=== PATIENT | male | born 1940 | race Caucasian/White ===

== ENCOUNTER 2024-08-21 07:29 | Day surgery (SDC) | payer MEDICARE, SELFPAY ==
[2024-08-21] VITALS (25 sets, daily range): BP systolic 111–174; BP diastolic 49–114; BMI 31.6
[2024-08-21 08:49] LABS: Hematocrit 41.4 % (39.0-52.0); Hemoglobin 13.8 g/dL (13.0-18.0); Mean Corp Hgb Conc. 33.3 g/dL (33.0-37.0); Mean Corpuscular Volume 96.1 fL (80.0-94.0); Platelet Count 144 10^3/uL (130-400); Red Blood Cell Count 4.31 10^6/uL (4.70-6.10); Red Cell Dist. Width 13.6 % (11.5-14.5); White Blood Cell Count 9.7 10^3/uL (4.8-10.8)
[2024-08-21 09:03] LABS: APTT 25.1 Sec (23.4-35.0); INR 1.05
[2024-08-21 09:04] LABS: Blood Urea Nitrogen 23 mg/dl (9-20); Calcium 8.7 mg/dl (8.4-10.2); Carbon Dioxide 25 mmol/L (22-30); Chloride 104 mmol/L (98-107); Estimated Creatinine Clearance 92 ml/min; Glucose 114 mg/dl (70-99); Potassium 4.6 mmol/L (3.5-5.1); Sodium 139 mmol/L (135-145); eGFR > 60.00
--- NOTE | 2024-08-21 10:14 | W.SUR.PREOP ---
Pre-Operative Surgical Note
-
I have examined this patient prior to the performance of the scheduled procedure.
The patient's condition is unchanged from the time of the current History and
Physical and the patient is able to undergo the scheduled procedure.
--- NOTE | 2024-08-21 12:00 | W.SUR.POST ---
Surgical Immediate Post Op
Note
Pre Op Diagnosis: Right lower extremity debilitating claudication
Post Op Diagnosis: Right lower extremity debilitating claudication
Procedure Performed: Aortogram, right lower extremity angiogram, right iliac stent
Primary Surgeon: Ernie Quintero III, MD
Secondary Surgeons: N/A
Anesthesia: MAC
Estimated Blood Loss: 2 ml
Fluids: See anesthesia flowsheet
Drains/Shunts: N/A
Specimens/Cultures: N/A
Doppler/Duplex/Angio (Y/N):Y
Complications: None
Operative Findings: Successful endovascular invention
--- NOTE | 2024-08-21 12:57 | SUR.PHASEI ---
1245: Upon preparing for patient to be transported back to employment attorney, pt. right groin stated to bleed. RN removed dressing and held pressure with clean 4x4. Cath RAJESH Pedro made aware and Cath team arrived to PACU. Cath PA took over holding pressure
and hemostasis was reachieved at 1245. Pressure dressing was changed. Pt. vitals remained WNL throughout event. Pt. was safely transported back to CATH recovery room from PACU after given the okay from RAJESH Pedro.
--- NOTE | 2024-08-21 19:31 | PTCARENOTE ---
pt arrived 182 from labor operator, flat in bed/bedrest, precautions remain. NV cks, site assessed with nurses no active bleeding, dried blood on sheet, pressure dressing to left groin intact. very pleasant.
[2024-08-21] MEDS: TIMOPTIC 0.5% OPHTHALMIC SOLUTION 1 DROP BOTH EYES (19:42)
[2024-08-21] MEDS: XALATAN OPHTHALMIC SOLUTION 1 DROP BOTH EYES (19:42)
[2024-08-21] MEDS: COREG 6.25 MG PO (19:42)
[2024-08-21] MEDS: NSS 1000 IV (21:16)
[2024-08-21] MEDS: AZOPT 1% OPHTHALMIC SUSPENSION 1 DROP BOTH EYES (21:22)
[2024-08-21] MEDS: ALPHAGAN 0.2% EYE DROPS 1 DROP BOTH EYES (21:22)
[2024-08-22 03:05] VITALS: BP 135/62
--- NOTE | 2024-08-22 07:03 | W.PN.VS ---
Addendum entered and electronically signed by Ari Strickland MD 08/22/24 15:49:
Seen and evaluated prior to his discharge. As noted below, agree with findings. Patient was without complaints. Abdomen soft. Groins flat bilaterally. Feet warm. EKG changes reviewed. We asked cardiology Dr. Schwarz to see the patient.
Appreciate Dr. Fierro evaluation. He reviewed and felt that the patient was okay to be discharged and follow-up with his reconcilement clerk as outpatient. See Dr. Fierro note. Patient was able to void successfully without difficulty. No significant
postvoid residual. Therefore discharge as planned.
Addendum entered and electronically signed by ERLINDA Ann 08/22/24 08:50:
Correction to below plan if he requires a third catheterization for continued urinary retention we will place a Quintero catheter with leg bag
Original Note:
Today's Communication / Plan
-
Reviewed subjective/objective data and physical exam with on-call attending Dr. Ari Strickland via phone, agrees with below plan.
Assessment/Plan
-
Assessment: 84-year-old male POD #1 aortogram with right iliac artery stent, required prolonged stay for urinary retention
Plan:
Encourage ambulation and voiding in comfortable position, if patient requires a fourth catheterization for continued urinary retention we will at that point place Quintero catheter with leg bag and discharge patient to home with outpatient follow-up
with urology for retention
Follow-up with vascular surgery placed in discharge instructions
Continue prior dosing of aspirin for antiplatelet medication
Subjective Data
-
Date of Service: August 22, 2024
Patient seen and examined at bedside, offers no complaints. Does endorse 1 spontaneous urination overnight, but did require straight cath afterwards for high post residual void. Denies pain at bilateral groin puncture sites. Tolerating p.o. diet.
Objective Data
-
Vital Signs
Temp Pulse Resp BP Pulse Ox
98.8 F 61 16 135/62 97
08/22/24 03:05 08/22/24 03:05 08/22/24 03:05 08/22/24 03:05 08/22/24 03:05
Intake and Output
08/21/24 08/22/24 08/23/24
06:59 06:59 06:59
Intake Total 960 / 960
Output Total 2800 / 2800
Balance -1840 / -1840
Intake:
IV fluids (Total) 960 / 960
Output:
Urine, Quintero 1550 / 1550
Urine, Voided 650 / 650
Straight cath output 600 / 600
Calcium 8.7 mg/dl (8.4-10.2) 08/21/24 08:34
Physical Exam
-
No apparent distress, resting bed comfortably
No tachycardia
No dyspnea on room air
ABD rotund, nondistended, nontender
Bilateral groin puncture sites clean dry and intact, no evidence of hematoma
Right DP/PT with Doppler signal, bilateral feet warm
[2024-08-22 07:15] VITALS: BP 147/63
[2024-08-22 07:31] LABS: Hematocrit 35.2 % (39.0-52.0); Hemoglobin 12.2 g/dL (13.0-18.0); Mean Corp Hgb Conc. 34.7 g/dL (33.0-37.0); Mean Corpuscular Hgb 32.4 pg (27.0-31.0); Mean Corpuscular Volume 93.4 fL (80.0-94.0); Mean Platelet Volume 10.4 fL (7.4-10.4); Platelet Count 124 10^3/uL (130-400); Red Blood Cell Count 3.77 10^6/uL (4.70-6.10); Red Cell Dist. Width 13.8 % (11.5-14.5); White Blood Cell Count 14.5 10^3/uL (4.8-10.8)
[2024-08-22 07:37] LABS: INR 1.05
[2024-08-22 07:38] LABS: APTT 26.7 Sec (23.4-35.0)
[2024-08-22] MEDS: AZOPT 1% OPHTHALMIC SUSPENSION 1 DROP BOTH EYES (07:46)
[2024-08-22] MEDS: ASPIRIN 325 MG PO (07:46)
[2024-08-22] MEDS: ALPHAGAN 0.2% EYE DROPS 1 DROP BOTH EYES (07:46)
[2024-08-22] MEDS: COREG 6.25 MG PO (07:47)
[2024-08-22] MEDS: COZAAR 100 MG PO (07:51)
[2024-08-22] MEDS: NORVASC 10 MG PO (07:52)
[2024-08-22] MEDS: ZYRTEC 10 MG PO (07:52)
[2024-08-22] MEDS: LIPITOR 20 MG PO (07:52)
[2024-08-22] MEDS: PEPCID 20 MG PO (07:52)
[2024-08-22] MEDS: TIMOPTIC 0.5% OPHTHALMIC SOLUTION 1 DROP BOTH EYES (07:53)
[2024-08-22 08:02] LABS: Blood Urea Nitrogen 19 mg/dl (9-20); Calcium 8.7 mg/dl (8.4-10.2); Carbon Dioxide 27 mmol/L (22-30); Chloride 101 mmol/L (98-107); Estimated Creatinine Clearance 82 ml/min; Glucose 125 mg/dl (70-99); Sodium 137 mmol/L (135-145); eGFR > 60.00
--- NOTE | 2024-08-22 09:49 | PTCARENOTE ---
Notified Dr. Strickland and Mayela Nichols. he has bradycardia. A first� AV block. And second degree into 30s. Did EKG. Blood pressure 125/63 heart rate 54 map 84. Alert and oriented palpable pedals. PCP EKG showed prolonged DE
[2024-08-22 09:55] VITALS: BP 125/63
[2024-08-22] MEDS: FLOMAX 0.4 MG PO (10:18)
--- NOTE | 2024-08-22 10:53 | PTCARENOTE ---
Spoke with DENTAL LAB TECHNICIAN on PC...consulting Miah vera, verbal order placed.
[2024-08-22 11:30] VITALS: BP 118/57
--- NOTE | 2024-08-22 11:44 | CON.CAR ---
Consultation
Consultation Request
Date/Time Consultation Requested: 08/22/2024 at 11 AM
Date/Time Consultation Performed: 08/22/2024 at noon
Requesting Provider: Mayela Nichols/Ernie Quintero
Performing Provider: Miah Fierro MD
Reason for Consultation: Bradycardia
Medical History
-
Chief Complaint: Bradycardia
History of Present Illness:
Patient underwent right iliac stent on August 21, had urinary retention and so was kept overnight, this morning had transient second-degree AV block, and consultation requested. His leg feels better this morning. He has never had lightheadedness
or syncope. He has no awareness of palpitations etc. There is a history of PVCs, but his necktie turner Dr. Tavares at [facility] has never documented arrhythmia. He has a mildly dilated aortic root and normal LV function with mild ME by echo. His son
is a nurse automotive service porter at [employer].
Past Medical History
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
Past Surgical History: Other (Herniorrhaphy, laser trabeculectomy,)
Social History
Tobacco: Former Smoker (Quit 4 years)
Alcohol: Former (At least moderate until stroke in 2012, now none)
Drug: None
Personal:
Living: With Family ()
Employment: Retired (Worked in [employer]/premature a.m[employer]
Family History
Family History: Reviewed & Not Pertinent
Allergies / Home Medications
Allergy/AdvReac Type Severity Reaction Status Date / Time
No Known Allergies Allergy Verified 08/19/24 16:10
�Medication �Instructions �Recorded �Confirmed �Type
amlodipine 10 mg tablet 10 mg PO DAILY 07/29/24 08/21/24 History
aspirin 325 mg tablet 325 mg PO DAILY 07/29/24 08/21/24 History
atorvastatin 20 mg tablet 20 mg PO DAILY 07/29/24 08/21/24 History
carvedilol 12.5 mg tablet (Coreg) 6.25 mg PO BID 07/29/24 08/21/24 History
cetirizine 10 mg tablet 10 mg PO DAILY 07/29/24 08/21/24 History
coQ10 (ubiquinol) 100 mg capsule 200 mg PO DAILY 07/29/24 08/21/24 History
famotidine 20 mg tablet 20 mg PO DAILY 07/29/24 08/21/24 History
latanoprost 0.005 % eye drops 1 drp ophthalmic (eye) QPM 07/29/24 08/21/24 History
losartan 100 mg tablet 100 mg PO DAILY 07/29/24 08/21/24 History
timolol 0.5 % eye drops 1 drp ophthalmic (eye) BID 07/29/24 08/21/24 History
brimonidine 0.2 % eye drops 1 drp ophthalmic (eye) TID 08/21/24 08/21/24 History
brinzolamide 1 % eye 1 drp ophthalmic (eye) TID 08/21/24 08/21/24 History
drops,suspension
tamsulosin 0.4 mg capsule 0.4 mg PO DAILY #14 caps 08/22/24 Rx
Review of Systems
-
All other systems: Negative unless noted
Physical Exam
Vital Signs
Temp Pulse Resp BP Pulse Ox
36.5 C 82 16 125/63 97
08/22/24 07:15 08/22/24 09:55 08/22/24 07:15 08/22/24 09:55 08/22/24 09:55
Lab Results
08/22/24 06:41
08/22/24 06:41
Physical Exam
General: Well Developed and No Apparent Distress
HEENT: Normocephalic (Markedly positive lens, presumed prior cataract surgery)
Respiratory: Clear
Cardiac: Regular Rhythm and Other (No murmur carotids okay, JVD normal)
GI: Soft and Non Distended
Musculoskeletal: No Edema
Skin: Warm and Dry
Neuro: AO x 3
Psych: Calm
Impression / Plan
-
Impression:
Asymptomatic Mobitz type I second-degree AV block with baseline first-degree AV block and blocked PACs
PAD with occluded right common iliac, status post I O PSYCHOLOGIST stent August 21, 2024
Remote stroke with blindness left eye
Bilateral carotid artery stents
Hypertension
Hyperlipidemia
History of PVCs
Coronary artery calcification
Last reported echo 2022: EF 60-65% aortic root 4 cm, ascending aorta 4 cm mild AI,
CT chest 2021 coronary artery calcification
Carotid ultrasound 2022, 50-69% on left, less than 50% on right
Plan:
He presents with asymptomatic early sick sinus syndrome with baseline first-degree AV block, relative bradycardia, blocked PACs and rare Mobitz type I second-degree AV block.
Given that he is asymptomatic, nothing is required acutely. His recent bladder outlet obstruction may have increased vagal tone and made his symptoms more evidence.
At this point nothing further is required. I discussed with his son who is a nurse automotive service porter. His son took a photo of his telemetry strip showing Mobitz type I. He will follow-up to his [facility] necktie turner and obtain appropriate studies
thereafter.
Okay for discharge from cardiac standpoint.
Please call if questions.
Data Reviewed
-
EKG: Tracing Personally Visualized and interpreted
Labs: Labs Reviewed by me
Old Records: Reviewed
Total Time Spent with Patient (in minutes): 55
[2024-08-22 14:30] VITALS: BP 130/58
--- NOTE | 2024-08-22 15:06 | CM ---
IA completed with pt.
Pt is an 84yr old who was admitted outpt for arteriogram.
Pt lives with his son and family in a 1 level living with 7steps to enter. Pt does not drive.
Pt has no DME/VN/SNf hx
PCP; Gilbert Walls
Pharm; [facility] [address]
PLAN; dc to home with no needs.
--- NOTE | 2024-08-24 08:57 | OR.RPT ---
Operative Report
Operative Report
Date of Operation: 08/21/2024
Pre Op Diagnosis:
1. Debilitating right buttock claudication
2. Occluded right common iliac artery
Post Op Diagnosis:
1. Debilitating right buttock claudication
2. Occluded right common iliac artery
Procedure:
1.) Intravascular lithotripsy to right common iliac artery (12 mm x 30 mm L6 shockwave balloon)
2.) Balloon angioplasty and stenting of right common iliac artery (overlapping [place] VBX stents 10 mm x 59 mm, 10 mm x 39 mm)
3.) Diagnostic aortobiiliac arteriogram
4.) Ultrasound-guided percutaneous access to the BILATERAL common femoral arteries
5.) Introduce wire/catheter to aorta from bilateral femoral artery access
Surgeon: Ernie Quintero III, MD
Scanner Supervisor: Milton Nugent MD PGY1
Anesthesia: Sedation with local
Fluoroscopy:
18.9 min
1450 mGy
285.01 Gy.cm2
Complications: None
Estimated Blood Loss: 10 cc
History and Indications for Procedure: 83-year-old male with debilitating right buttock claudication. Cross-sectional imaging preoperatively demonstrated an occluded right common iliac artery.
Procedure in Detail: Kaya Blue was correctly identified and placed supine on the operating table. After adequate induction of anesthesia the bilateral groins were prepped and draped in the usual sterile fashion. A timeout was performed
with the nursing and anesthesia staff confirming the patient's identity as well as the nature and laterality of the procedure.
The right common femoral artery was identified under ultrasound guidance. The artery was patent. The superior and inferior aspects of the femoral head were identified with radiographic guidance and marked at the skin level. The proposed puncture
site was infiltrated with local anesthesia. Under ultrasound guidance we accessed the right common femoral artery with a micropuncture needle and upsized to a 5 Fr sheath over a Bentson wire. Similarly, under ultrasound guidance the left common
femoral artery was accessed with a micropuncture needle. A 5 Wallisian sheath was then placed over a Bentson wire. The wire and a Shepherds hook flush catheter were advanced into the distal abdominal aorta from the left common femoral access and a
diagnostic aorto-biiliac arteriogram was performed:
AORTO-ILIAC ARTERIOGRAM:
Aorta: Patent with no significant stenosis identified
Right common iliac artery: Occluded. Distal reconstitution identified at the iliac bifurcation
Right external iliac artery: Patent
Left common iliac artery: Patent. Calcified stenosis identified at the mid segment
Left external iliac artery: Patent
ENDOVASCULAR INTERVENTION: Systemic heparin was administered. Under roadmap guidance using a Quickcross catheter and stiff Glidewire I was able to cross the right common iliac artery occlusion retrograde. The wire and catheter were advanced into
the distal abdominal aorta. An arteriogram was performed, confirming position in the aorta. I then placed a floppy tip Amplatz wire and upsized to an 8 Wallisian sheath on the right. I then exchanged out for a 0.018 wire on the right. Due to the
heavily calcified nature of the common iliac artery disease and in an effort to modify the calcium to achieve maximum luminal gain with endovascular intervention I elected to proceed with intravascular lithotripsy. A 12 mm x 30 mm L6 shockwave
balloon was placed across the stenosis under roadmap guidance. Alternating rounds of lithotripsy pulse delivery at sub-nominal pressure and angioplasty at nominal pressure was performed across the stenosis. In between rounds of pulse delivery and
angioplasty the balloon was deflated and repositioned under roadmap guidance. All 300 pulses were delivered. Subsequent arteriogram demonstrated significant improvement but residual disease remained. I then treated the right common iliac artery
with overlapping [place] VBX stents. The first was a 10 mm x 59 mm and was placed in the desired location under roadmap guidance in the proximal right common iliac artery. This was deployed by inflating the balloon to nominal pressure. I then
extended this distally towards the iliac bifurcation with a 10 mm x 39 mm [place] VBX stent which again was positioned and deployed in the desired location under roadmap guidance.
COMPLETION ARTERIOGRAM: Patent aorta. Widely patent right common iliac artery stents with no residual stenosis identified. Right internal iliac artery patent. Right external iliac artery patent. Left common iliac artery patent with mid segment
calcified stenosis.
Satisfied with this result we concluded the procedure. Protamine was administered. The sheaths were pulled and direct manual pressure was held over the puncture sites bilaterally. Hemostasis was achieved bilaterally.
The patient tolerated the procedure well and was taken to the recovery area in stable condition.
Attestation: I was present and responsible for the entire procedure.
Signed:
Ernie Quintero III, MD
[facility]
[phone] (cell)
== END 2024-08-22 15:05 | disposition home or self-care (01) ==
LOC: CATH 07:29
PROVIDERS: Nurse Practitioner; ATTENDING PHYSICIAN Surgery Vascular Surgery; CONSULT PHYSICIAN Internal Medicine Cardiovascular Disease; FAMILY PHYSICIAN Internal Medicine; OTHER PHYSICIAN Internal Medicine Cardiovascular Disease
DX: I70.211 Atherosclerosis of native arteries of extremities with intermittent claudication, right leg (principal); R33.9 Retention of urine, unspecified; I44.1 Atrioventricular block, second degree; Z87.891 Personal history of nicotine dependence; Z79.899 Other long term (current) drug therapy; Z79.82 Long term (current) use of aspirin; I10 Essential (primary) hypertension; E78.00 Pure hypercholesterolemia, unspecified; H54.62 Unqualified visual loss, left eye, normal vision right eye; I25.10 Atherosclerotic heart disease of native coronary artery without angina pectoris; Z86.73 Personal history of transient ischemic attack (TIA), and cerebral infarction without residual deficits; H40.9 Unspecified glaucoma
CPT/HCPCS: C9765; 75630; 80048; 85027; 85610; 85730; 93005; C1769; C1874; C1894; Q9967

== ENCOUNTER → 2024-09-21 13:45 | Outpatient (REF) | payer MEDICARE, SELFPAY | LOC: RAD 13:45 | PROVIDERS: ATTENDING PHYSICIAN Surgery Vascular Surgery; FAMILY PHYSICIAN Internal Medicine | DX: I77.9 Disorder of arteries and arterioles, unspecified (principal) | CPT/HCPCS: 93922; 93925; 93978 ==

== ENCOUNTER → 2025-04-15 09:41 | Outpatient (REF) | payer MEDICARE, SELFPAY | LOC: RAD 09:41 | PROVIDERS: ATTENDING PHYSICIAN Registered Nurse; FAMILY PHYSICIAN Internal Medicine | DX: I77.9 Disorder of arteries and arterioles, unspecified (principal); I74.5 Embolism and thrombosis of iliac artery | CPT/HCPCS: 93922; 93925; 93978 ==